=== PATIENT | female | born 1960 | race Caucasian/White ===

== ENCOUNTER 2021-05-07 17:51 | Emergency (ER) | payer OTHER ==
[2021-05-08 00:32] LABS: BUN 13 mg/dL (7-18); BUN/CREAT RATIO (CALC) 20.6 RATIO; CHLORIDE 104 mmol/L (98-107); CO2 (BICARBONATE) 25 mmol/L (21-32); CREATININE 0.63 mg/dL (0.51-0.95); GLUCOSE 117 mg/dL (74-106); POTASSIUM 4.3 mmol/L (3.5-5.1)
[2021-05-08 00:42] LABS: C-REACTIVE PROTEIN < 0.20 mg/dL (<=0.90)
[2021-05-08 01:09] LABS: BASOPHIL 0.6 % (0-2); EOSINOPHIL 0.6 % (0-5); HCT 39.4 % (37.0-47.0); HGB 13.5 g/dl (12.5-16.0); LYMPHOCYTE 33.6 % (15-48); MCH 30.3 pg (25.0-31.0); MCHC 34.3 g/dL (32.0-36.0); MCV 88.5 fL (78.0-100.0); MPV 12.1 fL (6.0-9.5); NEUTROPHIL 57.9 % (41-80); NRBC 0; PLT 220 K/uL (150-400); RBC 4.45 M/uL (4.20-5.40); RDW 13.2 % (11.5-14.0)
[2021-05-08] MEDS ORDERED: MEDROL 4MG DOSEP4 MG PO (02:52)
[2021-05-08] MEDS ORDERED: DILAUDID2 MG PO (02:52)
[2021-05-08] MEDS ORDERED: ROBAXIN750 MG PO (02:52)
== END 2021-05-08 03:20 | disposition home or self-care (01) ==
LOC: FER 17:51
PROVIDERS: Emergency Medicine Emergency Medical Services
DX: M51.16 Intervertebral disc disorders with radiculopathy, lumbar region (principal); I10 Essential (primary) hypertension; Z98.51 Tubal ligation status; Z90.710 Acquired absence of both cervix and uterus; Z88.1 Allergy status to other antibiotic agents; Z88.6 Allergy status to analgesic agent
CPT/HCPCS: 36415; 72131; 72192; 80048; 85025; 85379; 86140; J1100; J1170; J1885; J2405; J2800; J3360; J7050